=== PATIENT | female | born 1990 | race Caucasian/White ===

== ENCOUNTER 2020-08-16 15:27 | Outpatient (CLI) | payer OTHER ==
[~2020-08-16] VITALS: Ht 157.5 cm; Wt 107.6 kg
[2020-08-16] MEDS ORDERED: PNV-TAB2 PO (15:41)
[2020-08-16 15:50] VITALS: BP 136/76
[2020-08-16 16:05] LABS: HEMATOCRIT 34.6 % (36.0-47.0); HEMOGLOBIN 11.4 g/dl (12.0-15.5); MEAN CORPUSCULAR HEMOGLOBIN 29.7 pg (27.0-33.0); MEAN CORPUSCULAR HGB CONC 32.9 g/dl (32.0-36.5); MEAN CORPUSCULAR VOLUME 90.1 fl (80.0-96.0); PLATELET COUNT, AUTOMATED 290 10^3/uL (150-450); RED BLOOD COUNT 3.84 10^6/uL (4.00-5.40); WHITE BLOOD COUNT 10.3 10^3/uL (4.0-10.0)
[2020-08-16 16:26] LABS: ALT/SGPT 16 U/L (12-78); BILIRUBIN,TOTAL 0.1 MG/DL (0.2-1.0); CREATININE FOR GFR 0.62 MG/DL (0.55-1.30); GLOMERULAR FILTRATION RATE > 60.0 (>60); LDH LACTATE DEHYDROGENASE 220 U/L (84-246); URIC ACID 4.8 MG/DL (2.6-6.0)
[2020-08-16 16:36] LABS: CREATININE,RANDOM URINE 64.2 MG/DL; TOTAL PROTEIN,RANDOM URINE 13.1 MG/DL (0.0-12.0)
--- NOTE | 2020-08-16 16:51 | REP ---
INDICATION: Growth US for HTN. COMPARISON: None. TECHNIQUE: Mole multiple ultrasound and Doppler images of the gravid uterus. FINDINGS: There is a single intrauterine gestation in a cephalic presentation. The placenta is anterior with grade 3 maturity. No previa is identified. heart rate is 143 beats per minute. Amniotic fluid volume is 10.5. Normal is 7.8-24.9. The composite ultrasound gestational age by today's study is 35 weeks 5 days with an NERY of 09/15/2020. Gestational age by LMP is 35 weeks 5 days with an NERY of 09/15/2020. Estimated weight is 2920 g/6 lb, 6 oz. This is the 68th percentile for 35 weeks 5 days. Umbilical artery Doppler assessment: PSV 30.2 centimeters/second EDV 11.2 centimeters/second S/D 2.70 (1.65-3.53 close) RI 0.63 (0.45-0.71). The following anatomic structures are identified and are unremarkable: Cranium, cavum septum pellucidum, falx, lungs, cardiac rhythm, four-chamber heart, cardiac left ventricular outflow tract, diaphragm, stomach, abdominal wall, right and left kidneys, bladder, right upper extremity, right lower extremity, 3 vessel cord. Suboptimally demonstrated because of age are: Intracranial ventricles, choroid plexus, cerebellum, cisterna magna, facial profile, orbits, upper lip, right ventricular cardiac outflow tract, spine, left upper extremity, left lower extremity. IMPRESSION: measurements and findings as indicated above. <Electronically signed by Anjel Oneal > 08/16/20 [id number]
[2020-08-16 16:53] VITALS: BP 123/72
[2020-08-16 17:51] VITALS: BP 125/76
--- NOTE | 2020-08-16 18:37 | IPNPDOC ---
Text Note Date of Service The patient was seen on 08/16/20. NOTE 29yo at 35+5wks presenting for clinic referral for concern of elevated BP. She denies VB, LOF, DFM, or ctx's. Denies visual changes, RUQ pain, or WEAVER. She endorses edema to face, hands, and feet and reports home BP was mild- ranging. Vitals: normotensive here on L&D through multiple BP checks, afebrile NST: reactive Bray: no ctx's on tocometry PE: General: well-appearing, in NAD HEENT: NC/AT, airway patent self-maintained CARDS: well-perfused RESP: no exaggerated respiratory effort appreciated ABD: soft, nontender, gravid FUNDUS: S=D Ext: mild 1/4 edema to hands and feet : deferred Labs: normal PIH labs with p/c = 204 RADS: INDICATION: Growth US for HTN. COMPARISON: None. TECHNIQUE: Mole multiple ultrasound and Doppler images of the gravid uterus. FINDINGS: There is a single intrauterine gestation in a cephalic presentation. The placenta is anterior with grade 3 maturity. No previa is identified. heart rate is 143 beats per minute. Amniotic fluid volume is 10.5. Normal is 7.8-24.9. The composite ultrasound gestational age by today's study is 35 weeks 5 days with an NERY of 09/15/2020. Gestational age by LMP is 35 weeks 5 days with an NERY of 09/15/2020. Estimated weight is 2920 g/6 lb, 6 oz. This is the 68th percentile for 35 weeks 5 days. Umbilical artery Doppler assessment: PSV 30.2 centimeters/second EDV 11.2 centimeters/second S/D 2.70 (1.65-3.53 close) RI 0.63 (0.45-0.71). The following anatomic structures are identified and are unremarkable: Cranium, cavum septum pellucidum, falx, lungs, cardiac rhythm, four-chamber heart, cardiac left ventricular outflow tract, diaphragm, stomach, abdominal wall, right and left kidneys, bladder, right upper extremity, right lower extremity, 3 vessel cord. Suboptimally demonstrated because of age are: Intracranial ventricles, choroid plexus, cerebellum, cisterna magna, facial profile, orbits, upper lip, right ventricular cardiac outflow tract, spine, left upper extremity, left lower extremity. IMPRESSION: measurements and findings as indicated above. A/P: 29yo at 35+5wks presenting for clinic referral for elevated BP. Patient normotensive on L&D during evaluation. Growth scan normal. PIH labs normal with P/C = 204. Patient does not meet criteria for GHTN or preeclampsia at this time but patient counseled this could change in the upcoming days/weeks. -Patient counseled on FKCs, labor precautions -Patient counseled on preeclampsia precautions -Patient to f/u in 1 week for JESSY appt or sooner as clinically indicated. All questions answered. Anand, OB Staff VS,Watson, I+O VS, Watson, I+O Laboratory Tests 08/16/20 15:55 Vital Signs Date Time Temp Pulse Resp B/P (MAP) Pulse Ox O2 Delivery O2 Flow Rate FiO2 08/16/20 16:53 71 123/72 (89) 08/16/20 15:50 98.3 18 GHULAM STARK DO Aug 16, 2020 18:37
== END 2020-08-16 18:10 | disposition home or self-care (01) ==
LOC: M LDO 15:27
PROVIDERS: ATTEND Registered Nurse Maternal Newborn
DX: O26.893 Other specified pregnancy related conditions, third trimester (principal); Z3A.35 35 weeks gestation of pregnancy
CPT/HCPCS: 36415; 59025; 76811; 82247; 82565; 82570; 83615; 84156; 84450; 84460; 84550; 85027; G0378; G0463

== ENCOUNTER 2020-09-02 07:07 | Inpatient (IN) | payer OTHER ==
[~2020-09-02] VITALS: Ht 157.5 cm; Wt 110.8 kg
[2020-09-02] VITALS (8 sets, daily range): BP systolic 112–148; BP diastolic 64–93
[~2020-09-02 07:07] MED LIST: PNV-TAB2 PO
[2020-09-02] MEDS ORDERED: LR 1,000 ML IV SCH ×2 (07:51→10:50)
[2020-09-02] MEDS ORDERED: BICITRA 30ML SOLN UDC PO ONE (07:55)
[2020-09-02] MEDS ORDERED: GENTAMICIN 160 MG in D5W 50 ML IV SCH (08:05)
[2020-09-02] MEDS ORDERED: CLINDAMYCIN 900 MG in IV 1 EA IV ONE (08:15)
[2020-09-02 08:20] LABS: HEMATOCRIT 34.3 % (36.0-47.0); HEMOGLOBIN 11.4 g/dl (12.0-15.5); MEAN CORPUSCULAR HEMOGLOBIN 29.7 pg (27.0-33.0); MEAN CORPUSCULAR HGB CONC 33.2 g/dl (32.0-36.5); MEAN CORPUSCULAR VOLUME 89.3 fl (80.0-96.0); PLATELET COUNT, AUTOMATED 309 10^3/uL (150-450); RED BLOOD COUNT 3.84 10^6/uL (4.00-5.40)
[2020-09-02] MEDS ORDERED: MORPHINE PRES-FREE INJ 10 MG/10 ML VIAL (J2274) As Ordered ONE (08:34)
[2020-09-02] MEDS ORDERED: OXYTOCIN INJ 10 UNITS/ML VIAL (J2590) As Ordered ONE ×2 (08:34→08:35)
[2020-09-02] MEDS ORDERED: GENTAMICIN 370 MG in D5W 100 ML IV ONE (09:00)
[2020-09-02] MEDS ORDERED: NALOXONE INJ 0.4MG/1ML VIAL (J2310 PER 1MG) IV PRN ×2 (09:17)
[2020-09-02] MEDS ORDERED: ONDANSETRON 4MG/2ML VIAL IV PRN ×3 (09:17→10:50)
[2020-09-02] MEDS ORDERED: diphenhydrAMINE 50MG/ML VIAL (J1200) IV PRN (09:17)
[2020-09-02] MEDS ORDERED: METOCLOPRAMIDE INJ 10MG/2ML VIAL (J2765 PER 1) IV PRN ×2 (09:17→10:50)
[2020-09-02] MEDS ORDERED: NALBUPHINE HCL 10 MG/ML AMP (J2300) IV PRN (09:17)
[2020-09-02 09:38] LABS: CREATININE,RANDOM URINE 23.7 MG/DL; TOTAL PROTEIN,RANDOM URINE 19.4 MG/DL (0.0-12.0)
[2020-09-02] MEDS ORDERED: KETOROLAC 60MG 2ML VIAL As Ordered ONE (09:49)
[2020-09-02] MEDS ORDERED: ONDANSETRON 4MG/2ML VIAL As Ordered ONE (10:08)
[2020-09-02 10:27] LABS: CORD GAS ABE V -2.8; CORD GAS HCO3 V 24.4 MEQ/L; CORD GAS O2 SAT V 51.1 %; CORD GAS PCO2 V 50.9 mmHg; CORD GAS PH V 7.298 UNITS; CORD GAS PO2 V 23.1 mmHg; CORD GAS SBC V 20.9 MEQ/L; CORD GAS TCO2 V 25.9 MEQ/L
[2020-09-02] MEDS ORDERED: OXYTOCIN 30 UNITS IN 0.9% NaCl 500ML IV BAG (J2590) As Ordered ONE ×2 (10:38→11:19)
[2020-09-02] MEDS ORDERED: oxyCODONE 5MG TAB PO PRN ×2 (10:40)
[2020-09-02] MEDS ORDERED: MOM 30ML SUSPENSION UDC PO PRN (10:40)
[2020-09-02] MEDS ORDERED: SIMETHICONE 80MG CHEW TAB PO PRN (10:40)
[2020-09-02] MEDS ORDERED: MEASLES,MUMPS,RUBELLA VACCINE INJ (MMR-II) (90707) SC SCH (10:40)
[2020-09-02] MEDS ORDERED: ANUSOL HC CREAM 30GM TOP PRN (10:40)
[2020-09-02] MEDS ORDERED: ACETAMINOPHEN 500 MG TAB PO PRN (10:40)
[2020-09-02 10:42] LABS: ALBUMIN 2.9 GM/DL (3.2-5.2); ALT/SGPT 19 U/L (12-78); BILIRUBIN,TOTAL 0.2 MG/DL (0.2-1.0); BLOOD UREA NITROGEN 9 MG/DL (7-18); CARBON DIOXIDE LEVEL 22 MEQ/L (21-32); CHLORIDE LEVEL 103 MEQ/L (98-107); CREATININE FOR GFR 0.55 MG/DL (0.55-1.30); GLOMERULAR FILTRATION RATE > 60.0 (>60); GLUCOSE, FASTING 71 MG/DL (70-100); POTASSIUM SERUM 4.4 MEQ/L (3.5-5.1); SODIUM LEVEL 133 MEQ/L (136-145); TOTAL PROTEIN 6.6 GM/DL (6.4-8.2)
[2020-09-02] MEDS ORDERED: PERCOCET 5MG/325MG TAB PO PRN (10:50)
[2020-09-02] MEDS ORDERED: fentaNYL 100 MCG/2 ML INJECTION (J3010) IV PRN (10:50)
[2020-09-02] MEDS: OXYTOCIN DRIP 30 UNITS in IV 1 EA IV SCH ×2 (11:09→11:19)
--- NOTE | 2020-09-02 11:25 | ROOPDOC ---
[facility] Report Of Operation Report of Operation DATE OF PROCEDURE: 09/02/20 PREPROCEDURE DIAGNOSES: Gestational HTN, Obesity, C/SX2, GBS positive POSTPROCEDURE DIAGNOSES: SAME ABOVE. PROCEDURE: Repeat Delivery. SURGEON: Hermann Burnette MD MINE SUPERINTENDENT: Johnson Whatley CNM ANESTHESIA: SPINAL. ESTIMATED BLOOD LOSS: Approximately 500 mL. COMPLICATIONS: NONE REMARKS: CLINDAMYCIN AND GENTAMYCIN GIVEN PREOP PROCEDURE NOTE: Pfannenstiel incision over the previously incision scar. minimal scaring encountered. Mobius retractor placed. low transverse uterine incision. delivery of male infant 6LB 11OZ, 3030g, Apgars 9/9 Without issues. hysterotomy closed with 0-monocryl single layer. an additional figure of eight stitch placed in the midline of the hysterotomy of continued hemostasis. Fascia closed with 0- PDS. Subd c closed with 2-0 vicryl running. skin closed with the aurelio needle. optiform dressing used. DESCRIPTION OF PROCEDURE: . The patient was taken to the operating room where combination spinal and epidural anesthesia was found to be adequate. She was then prepped and draped in the normal sterile fashion in the dorsal supine position with a leftward tilt. A Pfannenstiel skin incision was then made with the scalpel and carried through to the underlying layer of fascia. The fascia was incised in the midline and the incision extended laterally with the curved Wing scissors. The superior aspect of the fascial incision was then grasped with the Radha clamps, elevated, and the underlying rectus muscles dissected off bluntly with the scalpel used in the midline. Attention was then turned to the inferior aspect of this incision which, in a similar fashion, was grasped, tented up with Kocker clamps, and the rectus muscles dissected off bluntly. The rectus muscles were then in the midline, and the peritoneum identified and entered bluntly. r. The Mobius retractor was inserted and the lower uterine segment incised in a transverse fashion with the scalpel. The uterine incision was then bluntly extended caudally and cephalad with manual traction. the infants head delivered atraumatically followed by right anterior shoulder, posterior shoulder and remainder of body. The cord was clamped and cut and handed to awaiting pediatricians. Cord segment obtained and cord blood sent for gases. The placenta was then removed with gentle traction. The uterus was exteriorized and cleared of all clots and debris. The uterine incision was closed with 0- Monocryl in a running locked fashion. a figure of eigth stitch with 0-Monocryl was placed in the midline with excellent hemostasis. Normal uterus, ovaries and tubes were noted. the uterus was returned back in the abdomen and the Mobius retractor removed from the abdomen. The gutters were cleared of all clots and the hysterotomy closure was inspected with excellent hemostasis noted again. The fascia was closed with 0-PDS in a running fashion from left to right apex. the subcutaneous tissue was closed with 2-0 vicryl in simple running fashion. the skin was closed with 3-0 quill monoderm suture. Optiform dressing was applied. The patient tolerated the procedure well. Sponge, lap and needle counts were correct times two. The patient was taken to the recovery room in stable condition. NIKKI PERKINS MD Sep 02, 2020 11:25
[2020-09-02] MEDS: KETOROLAC 30 MG/ML 1ML VIAL IV SCH ×2 (16:03→21:41)
[2020-09-02] MEDS: DOCUSATE SODIUM 100MG CAPSULE PO SCH (20:29)
[2020-09-03 02:00] VITALS: BP 105/58
[2020-09-03] MEDS: KETOROLAC 30 MG/ML 1ML VIAL IV SCH (04:17)
[2020-09-03 05:44] VITALS: BP 134/84
--- NOTE | 2020-09-03 08:10 | IPNPDOC ---
Progress Note Date of Service: Sep 03, 2020 Day#: 1 Progress Note SUBJECT: Meenu is a 29-year-old 3 now Para 3003 POD1 S/P RCD at 38+1 for GHTN. Uncomplicated delivery of male 6LB 11OZ, 3030g, Apgars 9/9 . She has been ambulating, voiding spontaneously without issue and tolerating regular diet. Breast feeding without issue. Reports lochia is minimal. Baby is in NICU Due to fall early this morning. she denies any s/s of anemia, infection or pre e. OBJECTIVE: VITAL SIGNS: Within normal limits, afebrile. Alert and oriented times three. normal work of breathing Heart rate: Regular rate and rhythm, Abdomen: Fundus firm at U-2. Soft, Appropriately tender- optiform dressing in place ASSESSMENT: Meenu is a 29-year-old 3 now Para 3003 POD1 S/P RCD at 38+1 for GHTN. Uncomplicated delivery of male infant 6LB 11OZ, 3030g, Apgars 9/9 Vitals within normal limits, afebrile, hemodynamically stable with no evidence of infection. PREOP H/H: 11.4/36 EBL: 500ml, Post OP H/H: 9.2/28.6 PLAN: 1. Discharge to home on POD2/3 2. Tylenol, oXYCODONE and Motrin for pain. 3. Encourage breast feeding and ambulation. 4. Minipill for contraception 5. Routine PP visit in 2 and 6 weeks in clinic. 6. Discussed return precautions at length. VS, I&O, 24H, [place] Vital Signs/I&O Vital Signs Date Time Temp Pulse Resp B/P (MAP) Pulse Ox O2 Delivery O2 Flow Rate FiO2 09/03/20 05:44 98.4 88 16 134/84 (101) 97 Room Air I&O- Last 24 Hours up to 6 AM 09/03/20 06:00 Intake Total 3600 ml Output Total 1975 ml Balance 1625 ml Laboratory Data 24H LABS Laboratory Tests 2 09/02/20 08:05: Nucleated Red Blood Cells % (auto) 0.0, Anion Gap 8, Glomerular Filtration Rate > 60.0, Calcium Level 9.0, Total Bilirubin 0.2, Aspartate Amino Transf (AST/SGOT) 33, Alanine Aminotransferase (ALT/SGPT) 19, Alkaline Phosphatase 196H, Total Protein 6.6, Albumin 2.9L, Albumin/Globulin Ratio 0.8L, Syphilis Serology NONREACTIVE 09/02/20 08:51: Urine Random Creatinine 23.7, Urine Random Total Protein 19.4H 09/02/20 09:46: Cord Venous Blood pH 7.298, Cord Venous Blood PCO2 50.9, Cord Venous Blood PO2 23.1, Cord Venous Blood HCO3 24.4, Cord Venous Blood Total CO2 25.9, Cord Venous Base Excess (Actual) -2.8, Cord Venous Base Excess (Standard) 20.9, Cord Venous Blood Oxygen Saturation 51.1 09/02/20 11:21: Serology Scanned Report Hepatitis B Testing CBC/BMP Laboratory Tests 09/02/20 08:05 NIKKI PERKINS MD Sep 03, 2020 08:10
[2020-09-03] MEDS: PRENATAL VITAMINS CHEWABLE TABLET PO SCH (09:11)
[2020-09-03] MEDS: DOCUSATE SODIUM 100MG CAPSULE PO SCH ×2 (09:11→20:20)
[2020-09-03] MEDS: FERROUS SULFATE 325MG TAB PO SCH (09:11)
[2020-09-03 09:21] LABS: HEMATOCRIT 28.3 % (36.0-47.0); HEMOGLOBIN 9.2 g/dl (12.0-15.5); MEAN CORPUSCULAR HEMOGLOBIN 30.1 pg (27.0-33.0); MEAN CORPUSCULAR HGB CONC 32.5 g/dl (32.0-36.5); MEAN CORPUSCULAR VOLUME 92.5 fl (80.0-96.0); PLATELET COUNT, AUTOMATED 252 10^3/uL (150-450); RED BLOOD COUNT 3.06 10^6/uL (4.00-5.40); WHITE BLOOD COUNT 10.2 10^3/uL (4.0-10.0)
[2020-09-03 10:00] VITALS: BP 142/70
[2020-09-03] MEDS: IBUPROFEN 800 MG TAB PO SCH ×2 (12:20→20:21)
[2020-09-03 14:00] VITALS: BP 138/65
[2020-09-03 22:00] VITALS: BP 147/81
[2020-09-04 02:00] VITALS: BP 143/88
[2020-09-04] MEDS: IBUPROFEN 800 MG TAB PO SCH ×2 (04:07→11:20)
[2020-09-04 05:15] LABS: HEMATOCRIT 30.7 % (36.0-47.0); HEMOGLOBIN 9.7 g/dl (12.0-15.5); MEAN CORPUSCULAR HEMOGLOBIN 29.4 pg (27.0-33.0); MEAN CORPUSCULAR HGB CONC 31.6 g/dl (32.0-36.5); PLATELET COUNT, AUTOMATED 272 10^3/uL (150-450); WHITE BLOOD COUNT 8.8 10^3/uL (4.0-10.0)
[2020-09-04 05:52] VITALS: BP 143/88
[2020-09-04 05:54] LABS: ALBUMIN 2.5 GM/DL (3.2-5.2); ALT/SGPT 21 U/L (12-78); BILIRUBIN,TOTAL 0.1 MG/DL (0.2-1.0); BLOOD UREA NITROGEN 7 MG/DL (7-18); CALCIUM LEVEL 8.8 MG/DL (8.5-10.1); CARBON DIOXIDE LEVEL 30 MEQ/L (21-32); CHLORIDE LEVEL 107 MEQ/L (98-107); CREATININE FOR GFR 0.63 MG/DL (0.55-1.30); GLOMERULAR FILTRATION RATE > 60.0 (>60); GLUCOSE, FASTING 85 MG/DL (70-100); POTASSIUM SERUM 4.1 MEQ/L (3.5-5.1); SODIUM LEVEL 141 MEQ/L (136-145); TOTAL PROTEIN 5.7 GM/DL (6.4-8.2)
--- NOTE | 2020-09-04 06:49 | IPNPDOC ---
Progress Note Date of Service: Sep 04, 2020 Day#: 2 Progress Note SUBJECT: Meenu is a 29-year-old 3 now Para 3003 POD1 S/P RCD at 38+1 for GHTN, now with diagnosis of pre-eclampsia without severe features. Uncomplicated delivery of male 6LB 11OZ, 3030g, Apgars 9/9. Breast feeding without issue. Reports lochia is like a normal period. Patient is ambulating well. [Reports some cramping with . Denies any pain. Voiding and passing flatus without difficulty. She denied n/v/d, cp, sob, banegas, visual changes, f/c, urinary sx. OBJECTIVE: VITAL SIGNS: Within normal limits, afebrile. Alert and oriented times three. Cards: non-tachycardic Pulm: no increased WOB Abdomen: Fundus firm at U-2. Soft, NTTP. [Minimal] lochia. ASSESSMENT: Meenu is a 29-year-old 3 now Para 3003 POD1 S/P RCD at 38+1 for GHTN, now with diagnosis of pre-eclampsia without severe features. Uncomplicated delivery of male 6LB 11OZ, 3030g, Apgars 9/9. Vitals within normal limits with exception of mild range BPs. She although has no si/sx of pre-eclampsia and they are not high enough to meet criteria for medications. She is afebrile, hemodynamically stable with no evidence of infection. The patient has a child at home who is on palliative care and is not doing well and she strongly desires to go home. I explained that she remains persistently mild range but given she has no si/sx of pre-e and her tox labs were normal this morning I am ok with this. She was educated on the strict return precautions for the si/sx of worsening pre-e. She is going to take her BP three times a day at home and come in for a BP check on Sunday and in 7 days. PLAN: 1. Discharge to home today. 2. Tylenol and Motrin for pain. 3. Encourage breast feeding and ambulation. 4. Plans on minpill for contraception - ordered to earlene 5. Routine PP visit in 6 weeks in clinic. on sunday and in 7d for bp checks 6. Discussed return precautions at length. VS, I&O, 24H, Watson Vital Signs/I&O Vital Signs Date Time Temp Pulse Resp B/P (MAP) Pulse Ox O2 Delivery O2 Flow Rate FiO2 09/04/20 05:52 98.9 86 18 143/88 (106) 98 Room Air Laboratory Data 24H LABS Laboratory Tests 2 09/03/20 09:09: Nucleated Red Blood Cells % (auto) 0.0 09/04/20 05:07: Nucleated Red Blood Cells % (auto) 0.0, Anion Gap 4L, Glomerular Filtration Rate > 60.0, Calcium Level 8.8, Total Bilirubin 0.1L, Aspartate Amino Transf (AST/SGOT) 26, Alanine Aminotransferase (ALT/SGPT) 21, Alkaline Phosphatase 146H, Total Protein 5.7L, Albumin 2.5L, Albumin/Globulin Ratio 0.8L CBC/BMP Laboratory Tests 09/03/20 09:09 09/04/20 05:07 CLARY CARSON DO Sep 04, 2020 06:49
[2020-09-04] MEDS: DOCUSATE SODIUM 100MG CAPSULE PO SCH (08:06)
[2020-09-04] MEDS: FERROUS SULFATE 325MG TAB PO SCH (08:06)
[2020-09-04] MEDS: PRENATAL VITAMINS CHEWABLE TABLET PO SCH (08:07)
== END 2020-09-04 12:10 | disposition home or self-care (01) | DRG 773 ==
LOC: M LDI 07:07 → M OBS 11:45 → EDUNIT# 09-09 09:30
PROVIDERS: ADMIT Obstetrics & Gynecology; ATTEND Obstetrics & Gynecology
PROC: 10D00Z1 Extraction of Products of Conception, Low, Open Approach (ICD-10-PCS; principal; 2020-09-02 09:30)
DX: O14.04 Mild to moderate pre-eclampsia, complicating childbirth (principal); O34.211 Maternal care for low transverse scar from previous cesarean delivery; O99.824 Streptococcus B carrier state complicating childbirth; O99.214 Obesity complicating childbirth; E66.9 Obesity, unspecified; Z3A.38 38 weeks gestation of pregnancy; Z37.0 Single live birth

== ENCOUNTER 2020-12-22 22:19 | Emergency (ER) | payer OTHER ==
[~2020-12-22] VITALS: Ht 157.5 cm; Wt 95.1 kg
[2020-12-22] MEDS ORDERED: NS 1,000 ML IV ONE (23:05)
[2020-12-22] MEDS ORDERED: ONDANSETRON 4MG/2ML VIAL IV ONE (23:05)
[2020-12-22 23:27] LABS: BASO % 0.2 % (0.0-1.0); HEMATOCRIT 42.2 % (36.0-47.0); HEMOGLOBIN 14.6 g/dl (12.0-15.5); LYMPH # 1.2 10^3/uL (1.5-5.0); MEAN CORPUSCULAR HEMOGLOBIN 29.3 pg (27.0-33.0); MEAN CORPUSCULAR HGB CONC 34.6 g/dl (32.0-36.5); MEAN CORPUSCULAR VOLUME 84.7 fl (80.0-96.0); MONO # 0.8 10^3/uL (0.0-0.8); MONO % 19.6 % (2.0-8.0); NEUTROPHILS % 50.7 % (36.0-66.0); PLATELET COUNT, AUTOMATED 188 10^3/uL (150-450); RED BLOOD COUNT 4.98 10^6/uL (4.00-5.40)
[2020-12-22 23:39] LABS: INR 0.98; PROTHROMBIN TIME 13.2 SECONDS (12.5-14.3)
[2020-12-22 23:40] LABS: PARTIAL THROMBOPLASTIN TIME 29.5 SECONDS (24.2-38.5)
[2020-12-22 23:59] LABS: ALBUMIN 3.7 GM/DL (3.2-5.2); BILIRUBIN,DIRECT 0.1 MG/DL (0.0-0.2); BILIRUBIN,TOTAL 0.6 MG/DL (0.2-1.0); TOTAL PROTEIN 7.9 GM/DL (6.4-8.2)
[2020-12-23] MEDS ORDERED: NS 1,000 ML IV ONE (01:50)
[2020-12-23 04:45] VITALS: BP 149/65
== END 2020-12-23 04:58 | disposition home or self-care (01) ==
LOC: M ED 22:19
DX: U07.1 COVID-19 (principal); I10 Essential (primary) hypertension; Z79.899 Other long term (current) drug therapy; Z88.8 Allergy status to other drugs, medicaments and biological substances
CPT/HCPCS: 80047; 80076; 83690; 84702; 85025; 85610; 85730; 93041; 94760; 96361; 96374; 99285; J2405

== ENCOUNTER → 2021-03-23 | Outpatient (REF) | payer OTHER | LOC: M LAB REF 14:51 | PROVIDERS: ATTEND Dermatology | DX: C43.59 Malignant melanoma of other part of trunk (principal) ==

== ENCOUNTER → 2021-04-22 | Outpatient (REF) | payer OTHER | LOC: M LAB REF 14:00 | PROVIDERS: ATTEND Dermatology | DX: Z85.820 Personal history of malignant melanoma of skin (principal); D23.5 Other benign neoplasm of skin of trunk ==

== ENCOUNTER 2021-07-03 15:53 | Emergency (ER) | payer OTHER ==
[~2021-07-03] VITALS: Ht 157.5 cm; Wt 106.9 kg
[2021-07-03 15:53] VITALS: BP 141/87
== END 2021-07-03 17:06 | disposition home or self-care (01) ==
LOC: M ED 15:53
DX: S63.651A Sprain of metacarpophalangeal joint of left index finger, initial encounter (principal); W18.40XA Slipping, tripping and stumbling without falling, unspecified, initial encounter; Y92.481 Parking lot as the place of occurrence of the external cause; Y93.9 Activity, unspecified; Y99.9 Unspecified external cause status; Z79.899 Other long term (current) drug therapy; Z88.1 Allergy status to other antibiotic agents